=== PATIENT | male | born 1960 | race Caucasian/White ===

== ENCOUNTER 2019-05-07 12:27 | Emergency (ER) | payer OTHER ==
[~2019-05-07] VITALS: Ht 170.2 cm; Wt 90.7 kg
[2019-05-07 12:37] VITALS: BP 106/74
[2019-05-07] MEDS ORDERED: FLUORESCEIN OPTH STRIP 0.6 MG ONE (13:22)
[2019-05-07] MEDS ORDERED: TETRACAINE HCL/PF 0.5% OPTH 4 ML BTL ONE (13:22)
[2019-05-07] MEDS ORDERED: FLUORESCEIN OPTH STRIP 0.6 MG OP ONE (14:30)
[2019-05-07] MEDS ORDERED: TETRACAINE HCL/PF 0.5% OPTH 4 ML BTL OP ONE (14:30)
[2019-05-07 14:47] VITALS: BP 106/74
== END 2019-05-07 14:47 | disposition home or self-care (01) ==
LOC: MED 12:27
DX: S05.02XA Injury of conjunctiva and corneal abrasion without foreign body, left eye, initial encounter (principal); X58.XXXA Exposure to other specified factors, initial encounter; Y93.89 Activity, other specified; Y92.096 Garden or yard of other non-institutional residence as the place of occurrence of the external cause; Y99.8 Other external cause status
CPT/HCPCS: 99283